=== PATIENT | male | born 1995 | race Caucasian/White ===

== ENCOUNTER 2016-10-21 22:27 | Emergency (ER) | payer BC ==
[~2016-10-21] VITALS: Ht 190.5 cm; Wt 81.8 kg
[2016-10-21 22:36] VITALS: BP 154/71; TEMP 97.9
[2016-10-21] MEDS ORDERED: NORCO 325 MG-7.1 TAB PO (23:54)
[2016-10-22 00:12] VITALS: PULSE 76
== END 2016-10-22 00:13 | disposition home or self-care (01) ==
LOC: COL.ER 22:27
DX: S52.502A Unspecified fracture of the lower end of left radius, initial encounter for closed fracture (principal); W03.XXXA Other fall on same level due to collision with another person, initial encounter; Y93.67 Activity, basketball; Y92.310 Basketball court as the place of occurrence of the external cause